=== PATIENT | female | born 1950 | race Caucasian/White ===

== ENCOUNTER 2019-03-11 06:38 | Day surgery (SDC) | payer MEDICARE, BC ==
[2019-03-11] VITALS (16 sets, daily range): BP systolic 107–154; BP diastolic 73–97
[~2019-03-11] VITALS: Ht 160 cm; Wt 70.7 kg
[2019-03-11] MEDS ORDERED: normal saline 1000ml 1,000 ML IV PRN (07:05)
[2019-03-11] MEDS ORDERED: ASPI81TA30 PO (07:13)
[2019-03-11] MEDS ORDERED: SIMV20TA5 PO (07:13)
[2019-03-11] MEDS ORDERED: OSC500T PO (07:13)
[2019-03-11 08:05] LABS: BASOPHILS % (AUTO) 0.3 % (0-1); EOSINOPHILS # (AUTO) 0.1 X10'3 (0-0.9); EOSINOPHILS % (AUTO) 1.2 % (0-6); HEMATOCRIT 36.2 % (35.0-45.0); HEMOGLOBIN 12.5 g/dl (12.0-16.0); LYMPHOCYTES % (AUTO) 24.9 % (21-51); MEAN CORPUSCULAR HEMOGLOBIN 29.3 PG (27.0-31.0); MEAN CORPUSCULAR HGB CONC 34.4 g/dL (33.0-36.5); MEAN CORPUSCULAR VOLUME 85.1 FL (78-98); MEAN PLATELET VOLUME 8.3 FL (7.4-10.4); MONOCYTES # (AUTO) 0.5 X10'3 (0-0.9); MONOCYTES % (AUTO) 6.1 % (2-12); NEUTROPHILS # (AUTO) 5.5 X10'3 (1.8-7.7); NEUTROPHILS % (AUTO) 67.5 % (42-75); PLATELET COUNT 300 X10'3 (140-440); RED BLOOD COUNT 4.25 X10'6 (4.20-5.60); RED CELL DISTRIBUTION WIDTH 13.3 % (11.5-14.5); WHITE BLOOD COUNT 8.2 X10'3 (4.5-11.0)
[2019-03-11 08:17] LABS: ALBUMIN 3.8 G/DL (3.4-5.0); ANION GAP 7 (8-16); BLOOD UREA NITROGEN 13 MG/DL (7-18); BUN/CREATININE RATIO 16.9 (6.6-38.0); CALCIUM 8.8 MG/DL (8.5-10.1); CHLORIDE 105 MMOL/L (99-107); CREATININE 0.77 MG/DL (0.40-0.90); GLUCOSE 93 MG/DL (70-104); POTASSIUM 3.7 MMOL/L (3.5-5.1); SODIUM 139 MMOL/L (135-145); TOTAL CARBON DIOXIDE 27.4 MMOL/L (24-32); eGFR 75 ML/MIN
[2019-03-11] MEDS ORDERED: midazolam 2 mg/2 ml injection IV PRN (08:45)
[2019-03-11] MEDS ORDERED: fentaNYL/PF 50MCG/1 ML 2ML syringe IV PRN (08:45)
[2019-03-11] MEDS ORDERED: midazolam 2 mg/2 ml injection ONE (08:47)
[2019-03-11] MEDS ORDERED: fentaNYL/PF 50MCG/1 ML 2ML syringe ONE (08:48)
[2019-03-11] MEDS ORDERED: HYDROcodone/acetaminophen 5mg/325mg tablet PO PRN (10:05)
== END 2019-03-11 11:50 | disposition home or self-care (01) ==
LOC: SSTAY O 06:38
PROVIDERS: ATTEND Radiology Diagnostic Radiology
DX: J84.10 Pulmonary fibrosis, unspecified (principal); E78.5 Hyperlipidemia, unspecified; Z90.710 Acquired absence of both cervix and uterus; Z98.890 Other specified postprocedural states; Z79.82 Long term (current) use of aspirin; Z79.899 Other long term (current) drug therapy
CPT/HCPCS: 32405; 36415; 71045; 77012; 80048; 85025; 99152; 99153; J2250; J3010; J7030

== ENCOUNTER 2019-10-27 05:55 | Day surgery (SDC) | payer MEDICARE, BC ==
[2019-10-26 10:45] LABS: BASOPHILS % (AUTO) 0.4 % (0-1); EOSINOPHILS # (AUTO) 1.7 X10'3 (0-0.9); EOSINOPHILS % (AUTO) 15.7 % (0-6); HEMATOCRIT 41.1 % (35.0-45.0); HEMOGLOBIN 13.8 g/dl (12.0-16.0); LYMPHOCYTES # (AUTO) 2.2 X10'3 (1.1-4.8); LYMPHOCYTES % (AUTO) 20.1 % (21-51); MEAN CORPUSCULAR HEMOGLOBIN 29.1 PG (27.0-31.0); MEAN CORPUSCULAR HGB CONC 33.6 g/dL (33.0-36.5); MEAN CORPUSCULAR VOLUME 86.5 FL (78-98); MEAN PLATELET VOLUME 7.7 FL (7.4-10.4); MONOCYTES # (AUTO) 0.5 X10'3 (0-0.9); MONOCYTES % (AUTO) 4.6 % (2-12); NEUTROPHILS # (AUTO) 6.4 X10'3 (1.8-7.7); NEUTROPHILS % (AUTO) 59.2 % (42-75); PLATELET COUNT 316 X10'3 (140-440); RED BLOOD COUNT 4.75 X10'6 (4.20-5.60); RED CELL DISTRIBUTION WIDTH 14.1 % (11.5-14.5); WHITE BLOOD COUNT 10.8 X10'3 (4.5-11.0)
[2019-10-26 10:54] LABS: ALBUMIN 3.9 G/DL (3.4-5.0); ANION GAP 7 (8-16); BLOOD UREA NITROGEN 13 MG/DL (7-18); BUN/CREATININE RATIO 16.3 (6.6-38.0); CALCIUM 8.5 MG/DL (8.5-10.1); CHLORIDE 105 MMOL/L (99-107); GLUCOSE 79 MG/DL (70-104); POTASSIUM 3.6 MMOL/L (3.5-5.1); SODIUM 143 MMOL/L (135-145); TOTAL CARBON DIOXIDE 30.9 MMOL/L (24-32); eGFR 71 ML/MIN
[2019-10-26 10:58] LABS: PARTIAL THROMBOPLASTIN TIME 25 SECONDS (22-32)
[~2019-10-27] VITALS: Ht 160 cm; Wt 70.4 kg
[2019-10-27] VITALS (10 sets, daily range): BP systolic 110–130; BP diastolic 63–87
[~2019-10-27 05:55] MED LIST: ASPI81TA30 PO; OSC500T PO; SIMV-42 PO
[2019-10-27] MEDS ORDERED: normal saline 1,000 ML IV SCH (06:15)
[2019-10-27] MEDS ORDERED: diphenhydrAMINE 25mg capsule PO PRN (06:15)
[2019-10-27] MEDS ORDERED: LORazepam 0.5 MG tablet PO PRN (06:15)
[2019-10-27] MEDS ORDERED: MULT-1085 PO (06:22)
[2019-10-27] MEDS ORDERED: LIDOcaine/PRILOcaine 5gm cream TP ONE (06:40)
[2019-10-27] MEDS ORDERED: midazolam 2 mg/2 ml injection ONE (07:34)
[2019-10-27] MEDS ORDERED: iohexol 350 MG/ML 50ML vial IV ONE (07:34)
[2019-10-27] MEDS ORDERED: nitroGLYCERIN-Tridil 50MG/D5W 250 ML IV ONE (07:34)
[2019-10-27] MEDS ORDERED: verapamil 2.5 mg/ml inj IV ONE (07:34)
[2019-10-27] MEDS ORDERED: fentaNYL/PF 50MCG/1 ML 2ML syringe ONE (07:34)
[2019-10-27] MEDS ORDERED: heparin 1,000unit/ml 10ml vial 10 ML ONE (07:34)
[2019-10-27] MEDS ORDERED: iohexol 350MG/ML 100ml bottle IV ONE (07:34)
[2019-10-27] MEDS ORDERED: LIDOcaine 1% (10mg/ml)w/preservative injection 20ml MDV ONE (07:35)
[2019-10-28 09:50] LABS: ISTAT HGB ART 10.9 g/dl (12.0-16.0); ISTAT Hct ART 32 %PCV (35-48); ISTAT Hct MIX 33 %PCV (35-48); ISTAT O2 SATURATION ARTERIAL 96 % (95-98); ISTAT O2 SATURATION MIX VENOUS 73 % (60-80); ISTAT SOURCE ART; ISTAT SOURCE MIX
== END 2019-10-27 14:10 | disposition home or self-care (01) ==
LOC: SSTAY O 05:55
PROVIDERS: ATTEND Internal Medicine Cardiovascular Disease
DX: R06.02 Shortness of breath (principal); I25.10 Atherosclerotic heart disease of native coronary artery without angina pectoris; E78.5 Hyperlipidemia, unspecified; Z79.82 Long term (current) use of aspirin; Z79.899 Other long term (current) drug therapy
CPT/HCPCS: 36415; 80048; 82803; 85014; 85025; 85610; 85730; 93005; 93460; 99152; 99153; C1769; C1894; J1644; J2001; J2250; J3010; J7030; Q0163; Q9967; A4620; A5120; J3490

== ENCOUNTER 2024-12-10 06:00 | Day surgery (SDC) | payer MEDICARE, BC ==
[2024-12-03 10:36] LABS: BASOPHILS % (AUTO) 0.4 % (0-1); EOSINOPHILS # (AUTO) 0.1 X10'3 (0-0.9); EOSINOPHILS % (AUTO) 1.9 % (0-6); LYMPHOCYTES % (AUTO) 30.5 % (21-51); MEAN CORPUSCULAR HEMOGLOBIN 29.6 PG (27.0-31.0); MEAN CORPUSCULAR HGB CONC 33.9 g/dL (33.0-36.5); MEAN CORPUSCULAR VOLUME 87.3 FL (78-98); MEAN PLATELET VOLUME 7.8 FL (7.4-10.4); MONOCYTES # (AUTO) 0.5 X10'3 (0-0.9); MONOCYTES % (AUTO) 6.8 % (2-12); NEUTROPHILS % (AUTO) 60.4 % (42-75); PRE OP HEMATOCRIT 40.3 % (35.0-45.0); PRE OP HEMOGLOBIN 13.7 g/dL (12.0-16.0); PRE OP PLATELET COUNT 323 X10'3 (140-440); PRE OP WHITE BLOOD COUNT 6.7 10'3 (4.8-10.8); RED BLOOD COUNT 4.62 X10'6 (4.20-5.60)
[2024-12-03 11:00] LABS: ALBUMIN 4.1 G/DL (3.4-5.0); ALBUMIN/GLOBULIN RATIO 1.3 (1.1-1.5); ALKALINE PHOSPHATASE 83 IU/L (46-116); BLOOD UREA NITROGEN 10 MG/DL (7-18); BUN/CREATININE RATIO 16.7 (10.0-20.0); CALCIUM 8.9 MG/DL (8.5-10.1); CHLORIDE 105 MMOL/L (99-107); PRE OP ALT 31 U/L (30-65); PRE OP ANION GAP 3 (8-16); PRE OP AST 26 U/L (10-37); PRE OP BILIRUB, TOTAL 0.5 MG/DL (0.0-1.0); PRE OP GLUCOSE 80 MG/DL (70-104); PRE OP POTASSIUM 4.4 MMOL/L (3.4-5.1); PRE OP SODIUM 141 MMOL/L (135-145); TOTAL CARBON DIOXIDE 32.9 MMOL/L (24-32); TOTAL PROTEIN 7.2 G/DL (6.4-8.2); eGFR > 90 ML/MIN
[2024-12-10] VITALS (15 sets, daily range): BP systolic 144–188; BP diastolic 68–90; PULSE 61–75; RESP 14–23; TEMP 99.2; O2SAT 93–100
[~2024-12-10] VITALS: Ht 190.5 cm; Wt 70.3 kg
[~2024-12-10 06:00] MED LIST changes: +METO-395 PO; +MULT-1085 PO; -OSC500T PO; +ROSU20TA98 PO; -SIMV-42 PO; +famotidine 20mg tablet PO ONE; +ringers solution, lacted 1,000 ML IV SCH
[2024-12-10] MEDS: DOCUMENT DATE & TIME OF BETA-BLOCKER PO ONE (06:21)
[2024-12-10] MEDS ORDERED: ipratropium/albuterol 3ml nebule NEB PRN (08:05)
[2024-12-10] MEDS ORDERED: sevoflurane 250ml liquid IH ONE (08:12)
[2024-12-10] MEDS ORDERED: midazolam 1 mg/ML 2ml injection ONE (08:12)
[2024-12-10] MEDS ORDERED: fentaNYL/PF 50MCG/1 ML 2ML syringe ONE ×2 (08:12→09:45)
[2024-12-10] MEDS: ipratropium/albuterol 3ml nebule NEB STA (08:15)
[2024-12-10] MEDS ORDERED: enalaprilat 1.25mg/ml 2ml vial IV PRN (08:25)
[2024-12-10] MEDS ORDERED: proCHLORperazine 10 MG/2 ml inj IV PRN (08:25)
[2024-12-10] MEDS ORDERED: morphine 2 MG/ML inj. syringe IV PRN (08:25)
[2024-12-10] MEDS ORDERED: morphine 4 MG/ML inj SYRINge IV PRN (08:25)
[2024-12-10] MEDS ORDERED: meperidine/PF 25mg/ml syringe IV PRN ×3 (08:25)
[2024-12-10] MEDS ORDERED: ringers solution, lacted 1,000 ML IV SCH (08:25)
[2024-12-10] MEDS ORDERED: rocuronium 10mg/ml inj IV ONE (08:29)
[2024-12-10] MEDS ORDERED: propofol inj 20 ML IV ONE ×2 (08:29→09:14)
[2024-12-10] MEDS ORDERED: neostigmine methylsulfate 1 MG/ML 10ml vial ONE (10:27)
[2024-12-10] MEDS ORDERED: glycopyrrolate 0.2mg/ml inj ONE (10:27)
[2024-12-10] MEDS ORDERED: ondansetron/PF 4mg/2ml inj ONE (10:27)
[2024-12-10] MEDS: labetalol 20mg/4ml (5mg/ml) syringe IV PRN (10:58)
[2024-12-10] MEDS: ondansetron/PF 4mg/2ml inj IV PRN (11:15)
== END 2024-12-10 11:44 | disposition home or self-care (01) ==
LOC: PAS 06:00
PROVIDERS: ATTEND Internal Medicine Critical Care Medicine
DX: R91.8 Other nonspecific abnormal finding of lung field (principal); J44.9 Chronic obstructive pulmonary disease, unspecified; E78.5 Hyperlipidemia, unspecified; J98.4 Other disorders of lung; I10 Essential (primary) hypertension; Z79.899 Other long term (current) drug therapy; Z90.710 Acquired absence of both cervix and uterus; Z98.890 Other specified postprocedural states
CPT/HCPCS: 31623; 31624; 31627; 31628; 31629; 31653; 36415; 71250; 80053; 82948; 85025; 87015; 87070; 87102; 87116; 87206; 94640; 94760; A4618; J1100; J2003; J2250; J2405; J2704; J2710; J3010; J3490; J7120; Z7506; Z7508; Z7512; Z7610; 31622; 31625; 31626; 31652; 31654

== ENCOUNTER 2024-12-11 19:10 | Emergency (ER) | payer MEDICARE, BC ==
[~2024-12-11] VITALS: Ht 160 cm; Wt 70.3 kg
[~2024-12-11 19:10] MED LIST changes: -famotidine 20mg tablet PO ONE; -ringers solution, lacted 1,000 ML IV SCH
[2024-12-11] MEDS: acetaminophen 325mg tablet PO ONE (20:09)
[2024-12-11 20:49] LABS: BASOPHILS % (AUTO) 0.3 % (0-1); EOSINOPHILS % (AUTO) 0 % (0-6); HEMATOCRIT 35.1 % (35.0-45.0); LYMPHOCYTES # (AUTO) 1.1 X10'3 (1.1-4.8); LYMPHOCYTES % (AUTO) 10.6 % (21-51); MEAN CORPUSCULAR HEMOGLOBIN 29.4 PG (27.0-31.0); MEAN CORPUSCULAR HGB CONC 34.2 g/dL (33.0-36.5); MEAN PLATELET VOLUME 8.4 FL (7.4-10.4); MONOCYTES # (AUTO) 0.5 X10'3 (0-0.9); MONOCYTES % (AUTO) 5.1 % (2-12); PLATELET COUNT 236 X10'3 (140-440); RED BLOOD COUNT 4.08 X10'6 (4.20-5.60); RED CELL DISTRIBUTION WIDTH 13.5 % (11.5-14.5); WHITE BLOOD COUNT 10.8 X10'3 (4.5-11.0)
[2024-12-11 21:31] LABS: ALBUMIN 3.5 G/DL (3.4-5.0); ANION GAP 8 (8-16); BLOOD UREA NITROGEN 11 MG/DL (7-18); BUN/CREATININE RATIO 16.7 (10.0-20.0); CHLORIDE 99 MMOL/L (99-107); CREATININE 0.66 MG/DL (0.40-0.90); GLUCOSE 105 MG/DL (70-104); POTASSIUM 3.5 MMOL/L (3.5-5.1); PRO BRAIN NATRIURETIC PEPTIDE 819 PG/ML (0-125); SODIUM 134 MMOL/L (135-145); TOTAL CARBON DIOXIDE 27.2 MMOL/L (24-32); eCRCL 63 ML/MIN; eGFR 88 ML/MIN
[2024-12-11 22:26] VITALS: TEMP 98.3
[2024-12-11 23:06] LABS: BILIRUBIN,URINE NEGATIVE (Neg); CLARITY,URINE CLEAR (Clear); COLOR,URINE YELLOW (Yellow); GLUCOSE, URINE NEGATIVE (Neg); KETONES,URINE NEGATIVE (Neg); LEUKOCYTE ESTERASE ,URINE NEGATIVE (Neg); NITRITES, URINE NEGATIVE (Neg); OCCULT BLOOD,URINE SMALL (Neg); PH,URINE 5.5 (4.8-8.0); PROTEIN,URINE NEGATIVE (Neg); UROBILINOGEN,URINE 0.2 E.U/dL (0.2-1.0)
[2024-12-11 23:10] LABS: UA COLLECTION TYPE CLN CATCH MIDSTREAM
[2024-12-11 23:12] LABS: BACTERIA,URINE NONE SEEN /HPF (Neg); SQUAMOUS EPITHELIAL CELL,UR NONE SEEN /LPF (FEW); WBC,URINE NONE SEEN /HPF (0-4)
[2024-12-12 01:05] VITALS: BP 108/41; PULSE 60; RESP 16; O2SAT 93
== END 2024-12-12 01:07 | disposition home or self-care (01) ==
LOC: ER 19:11
DX: B34.9 Viral infection, unspecified (principal); Z79.82 Long term (current) use of aspirin
CPT/HCPCS: 36415; 71046; 80048; 81001; 83605; 83880; 85025; 87040; 87502; 87503; 99284